=== PATIENT | male | born 1975 ===

== ENCOUNTER 2020-11-21 05:49 | Emergency (ER) | payer OTHER, SELFPAY ==
[2020-11-21] MEDS ORDERED: Aspirin Chewable 81 MG TAB ONE (06:16)
[2020-11-21 06:21] LABS: #Eosinphils 0.1 10x3/uL (0.0-0.5); #Monocytes 0.5 10x3/uL (0.0-1.1); #Neutrophils 4.6 10x3/uL (1.5-8.4); %Basophils 0.5 % (0.0-2.0); %Eosinophils 1.4 % (0.0-6.0); %Lymphocytes 37.3 % (18.0-47.0); %Monocytes 5.4 % (0.0-10.0); %Neutrophils 55.2 % (40.0-75.0); Hemoglobin 17.2 g/dL (13.5-17.5); Mean Corpuscular HGB CONC 35.1 g/dL (32.0-36.0); Mean Corpuscular Hemoglobin 30.8 pg (27.0-33.0); Mean Corpuscular Volume 87.8 fl (81.2-95.1); Mean Platelet Volume 10.8 fl (7.4-10.4); Platelet Count 226 10x3/uL (150-450); RBC Distribution Width 13.2 % (11.5-14.5); Red Blood Cell (RBC) Count 5.58 10x6/uL (4.32-5.72); White Blood Cell (WBC) Count 8.3 10x3/uL (3.5-10.5)
[2020-11-21] MEDS ORDERED: Ventolin HFA Inhaler 60 PUFF INHALER ONE (06:38)
[2020-11-21 06:46] LABS: ALT (SGPT) 34 U/L (8-55); AST (SGOT) 37 U/L (5-34); Albumin 4.3 g/dL (3.5-5.0); Alkaline Phosphatase 90 U/L (40-110); Anion Gap 14 mmol/L (10-20); BUN (Urea Nitrogen) 11 mg/dL (8.9-20.6); Bilirubin, Total 0.8 mg/dL (0.2-1.2); Calc. Creatinine Clearance 0 mL/min (70-130); Calcium 9.1 mg/dL (7.8-10.44); Carbon Dioxide 27 mmol/L (22-29); Chloride 103 mmol/L (98-107); Globulin 2.9 g/dL (2.4-3.5); Glucose 96 mg/dL (70-105); Potassium 3.6 mmol/L (3.5-5.1); Protein, Total 7.2 g/dL (6.0-8.3); Sodium 140 mmol/L (136-145)
== END 2020-11-21 07:43 | disposition home or self-care (01) ==
LOC: CSHERS 05:49
DX: R06.02 Shortness of breath (principal); F17.210 Nicotine dependence, cigarettes, uncomplicated; Z79.899 Other long term (current) drug therapy
CPT/HCPCS: 71045; 80053; 84484; 85025; 85379; 93005